=== PATIENT | male | born 1990 | race African-American/Black ===

== ENCOUNTER 2018-12-02 13:25 | Emergency (ER) | payer BC, OTHER ==
[2018-12-02 13:30] VITALS: TEMP 97.4
--- NOTE | 2018-12-02 13:43 | PDOC ---
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 Pt is post-ictal, and can provide very limited history, but pt is accompanied by his uncle, girlfriend, and brother. According to the family, the pt has had sz for about 15 years, with sz about once per week, usually with long post-ictal periods (pt can be "tired for hours"). Pt had a total of 3 sz today (9am, 11am, and noon), and the pts girlfriend found him on the kitchen floor after the last sz, prompting the EMS call. Pts uncle states the pt was drinking alcohol Gino night, and the pt was "not feeling well yesterday". Family denies any recent fever, cough, or vomiting in the pt. Family denies any changes to the pts medications, and pt has been compliant. Pt is still post-ictal and cannot provide other hx at this time. Bedside BGM 78. Allergies: NKDA PCP: Julián Pettit Neuro: Dr. Ponce Social: Pt smokes THC and social alcohol. Denies any cigarette or other drug use. Denies any recent travel or sick contacts. 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 Family: no relevant history. 12/02/18 16:55 Past History - Travel Traveled outside of the country in the last 30 days: No Close contact w/someone who was outside of country & ill: No - Past Medical History Allergies/Adverse Reactions: Allergies Allergy/AdvReac Type Severity Reaction Status Date / Time No Known Allergies Allergy Verified 12/02/18 13:26 Home Medications: Ambulatory Orders Oxcarbazepine 600 mg PO BID 12/02/18 COPD: No Seizures: Yes - Suicide/Smoking/Psychosocial Hx Smoking History: Current every day smoker Have you smoked in the past 12 months: Yes Number of Cigarettes Smoked Daily: 4 Information on smoking cessation initiated: No Hx Alcohol Use: No Drug/Substance Use Hx: No Review of Systems - Review of Systems Able to Perform ROS?: No (post-ictal, see HPI) Is the patient limited Samoan proficient: No Constitutional: No: Fever, Loss of Appetite Respiratory: No: Cough, Shortness of Breath ABD/GI: No: Vomiting Neurological: Yes: Symptoms reported, Seizure *Physical Exam - Vital Signs Last Vital Signs Temp Pulse Resp BP Pulse Ox 97.4 F L 57 L 18 96/63 100 12/02/18 13:27 12/02/18 13:27 12/02/18 13:27 12/02/18 13:27 12/02/18 13:27 - Physical Exam Comments: HR 57, BP 96/63, pt afebrile. Pt A/O x3 but still lethargic, normal body habitus. manager of revenue generally intact, muscular strength and sensation intact. Pt moving all extremities and responds appropriately to commands. Withdraws from painful stimuli. No midline spinal tenderness, step-offs, or crepitus. No neck stiffness nor tenderness with neck flexion or extension. Head with two hematomas: over R eye and R forehead. No active bleeding. Small abrasion to R eyelid. Eyes PERRLA, EOMI. Significant fluctuant hematoma of R eyelid, able to open eyes on command. No erythema of conjunctiva, no tenderness elicited with EOM. TMs without erythema nor blood. No ecchymosis behind ears. Oropharynx without erythema or exudates, no LAD b/l. No nasal congestion, hearing intact. Clear heart sounds, S1/S2, no JVD, b/l pedal edema, or heart murmur. Clear lung sounds, no respiratory distress, wheezes, crackles, or accessory muscle use. No abdominal or CVA tenderness to palpation, no rebound, no guarding. Abdomen soft, non-distended, and with normoactive bowel sounds. Skin without jaundice or rash. 12/02/18 13:43 12/02/18 15:36 ED Treatment Course - LABORATORY CBC & Chemistry Diagram: 12/02/18 14:31 12/02/18 14:32 Medical Decision Making - Medical Decision Making Pt was seen at bedside, also will be seen by attending Dr. Reyes. Pt presenting via EMS from home after multiple seizures and fall. Pt is post-ictal, and can provide very limited history, but pt is accompanied by his uncle, girlfriend, and brother. According to the family, the pt has had sz for about 15 years, with sz about once per week, usually with long post-ictal periods (pt can be "tired for hours"). Pt had a total of 3 sz today (9am, 11am, and noon), and the pts girlfriend found him on the kitchen floor after the last sz, prompting the EMS call. Pts uncle states the pt was drinking alcohol Gino night, and the pt was "not feeling well yesterday". Family denies any recent fever, cough, or vomiting in the pt. Family denies any changes to the pts medications, and pt has been compliant. Pt is still post-ictal and cannot provide other hx at this time. Bedside BGM 78. Pt seems to be having more frequent sz compared to baseline, will look for infectious and metabolic causes of decreased sz threshold. Pt also drinking alcohol and smoking heavy THC, which could have ppt this incident. Will also obtain imaging to look for potential mass recurrence, bleeding, and fractures sustained from falling, as pt has significant scalp and eye hematomas. Ordered work-up including CBC, CMP, Mg, EKG, chest x-ray, UA, non-contrast head , c-spine, and facial bones CT. Will continue to reassess pt and monitor for symptomatic improvement. 12/02/18 13:43 CT head with no acute bleed, mass, or midline shift. Scalp hematoma present. Worsened hypodensity surrounding prior craniotomy site, more likely representing encephalomalacia than recurrent ds. C-spine with no acute pathology. 12/02/18 15:47 CT facial bones negative for fracture, positive only for soft tissue swelling. Pt has improved from post-ictal period. Calling Dr. Ponce's team to get recommendations for sz medication. 12/02/18 16:14 Providing pt 1 L IV NS and will obtain urine sample. Providing 4 mg IV zofran for nausea. Dr. Barajas suggested increasing trileptal to 600 mg BID and additional 300 mg PO at night. Dr. Barajas will also follow the pt if he is admitted for observation. 12/02/18 16:36 UA negative for infection. Providing pt 650 mg PO tylenol and 600 mg PO trileptal before pt leaves ED. Pt now ambulatory in ED, back at baseline mental status. Considering normal lab results and imaging, pt can be discharged to home with follow-up. Pt advised to follow-up with PCP in 1-2 days and has been referred to ophthalmology. Strict return precautions provided with pt understanding. 12/02/18 18:17 *DC/Admit/Observation/Transfer Diagnosis at time of Disposition: Seizure Closed head injury Qualifiers: Encounter type: initial encounter Qualified Code(s): S09.90XA - Unspecified injury of head, initial encounter - Discharge Dispostion Disposition: HOME Condition at time of disposition: Improved Decision to Admit order: No - Referrals Referrals: Julián Burroughs MD [Primary Care Provider] - Dg Ponce MD [Staff Physician] - Anastacio Miguel MD [Staff Physician] - - Patient Instructions Printed Discharge Instructions: DI for Seizure Disorder -- Adult Additional Instructions: You were seen in the ER today for seizures. The results of your labs and imaging today showed only a hematoma in your forehead and eye. Please follow-up with your primary care doctor, neurology, and ophthalmology within 1-2 days to discuss your visit and make sure your symptoms have improved. Please return to the ER if you have any continued seizures, development of fevers or chills, confusion or loss of vision, loss of consciousness, inability to tolerate food or fluids, or any other concerns. Please increase your dose to 600 mg in the morning and afternoon, and additional 300 mg (1/2 of pill) in the evening. - Post Discharge Activity
[2018-12-02 14:41] LABS: BASO % 0.5 % (0-2.0); EOS % 0.7 % (0-4.5); HEMATOCRIT 36.8 % (35.4-49); HEMOGLOBIN 12.3 GM/dL (11.7-16.9); LYMPH % 6.6 % (8-40); MCH 31.3 pg (25.7-33.7); MCHC 33.4 g/dl (32.0-35.9); MEAN CELL VOLUME 93.6 fl (80-96); MONO % 5.5 % (3.8-10.2); NEUT % 86.7 % (42.8-82.8); PLATELET COUNT 295 K/MM3 (134-434); RBC 3.94 M/mm3 (4.00-5.60); RDW 13.6 % (11.9-15.9); WHITE BLOOD COUNT 13.8 K/mm3 (4.0-10.0)
--- NOTE | 2018-12-02 15:02 | PDOC ---
Documentation entered by Sasha Kirkpatrick SCRIBE, acting as scribe for Sacha Reyes MD. Sahca Reyes MD: This documentation has been prepared by the scribe, Sasha Kirkpatrick SCRIBE, under my direction and personally reviewed by me in its entirety. I confirm that the documentation accurately reflects all work, treatment, procedures, and medical decision making performed by me. Attending Attestation - Resident Resident Name: Kristin Avila - ED Attending Attestation I have performed the following: I have examined & evaluated the patient, The case was reviewed & discussed with the resident, I agree w/resident's findings & plan, Exceptions are as noted - HPI HPI: 12/02/18 15:28 The patient is a 28-year-old male, with a past medical history of seizures (on oxcarbamazapine) sp tumor resection when he was 13, who presents to the ED with recurrent seizures today. The patient reports having a seizure last week for which he saw his PCP. He had 2 witnessed seizures today and then had a third one that was unwitnessed, gf heard a thud when she was showering and when she went outside, saw him o nthe ground and postictal. Per family pt was doing ok recently, he did endorse a mild headache and was feeling tired yesterday - did endorse drinking on monday. The patient denies any fevers, chills, cough, nausea, vomiting, diarrhea, constipation, or abdominal pain. Denies any chest pain, palpitations, or shortness of breath. Allergies: NKA PCP: Dr. Burroughs - Physicial Exam PE: 12/02/18 16:22 GENERAL: The patient is awake, alert, and fully oriented, Nontoxic - in no acute distress. HEAD: Normocephalic, soft tissue edema on R periorbital region and R frontal scalp without stepoffs. EYES: extraocular movements intact, periorbital edema, conjunctiva clear, pupiles symmetrcailly reactive to light ENT: Normal voice, Moist mucous membranes. NECK: Normal range of motion, no focal ttp on midline cervical/thoraic lumbar spine LUNGS: Breath sounds equal, clear to auscultation bilaterally. No wheezes, no rhonchi, no rales. HEART: Regular rate and rhythm, normal S1 and S2 without murmur, rub or gallop. ABDOMEN: Soft, nontender, No guarding, no rebound. . No CVA tenderness EXTREMITIES: Normal range of motion, NEUROLOGICAL: No facial assymetry, Normal speech, moving all 4 ext spontaneously and symmetrically PSYCH: Normal mood, normal affect. SKIN: Warm, Dry, normal turgor, - Medical Decision Making 12/02/18 14:23 28y M hx of seizures (on oxacarbamazapine) presents with recurrent seizures, had seen his doctor last week for a seizure and had 2 today, EMS was called by GF. Pt did some etoh ingestion on monday and wasnt feeling well. Denies any recent illness otherwise including fever/cough/diarrhea/dysuria. no obvious triggers - compliant with meds, no new meds, no infectious complaints , sleeping well per family. unclear cause of his increase in seizure - will obtain labs, ct head, wally lreassess and dw neurology 12/02/18 16:28 ct head/labs unremarkble awaiting dw dr. uriostegui will continue to monitor Heart Score/ECG Review - ECG Impressions Comment:: 12/02/18 16:30 Twelve-lead EKG was performed and reviewed by me. There is normal sinus rhythm with a rate of 55 The axis is normal. The intervals are normal. There is normal R wave progression There are no ST or T wave abnormalities. Impression: sinus bradycardia
[2018-12-02 15:12] LABS: ALBUMIN 3.9 g/dl (3.4-5.0); BILIRUBIN,TOTAL 0.4 mg/dL (0.2-1); BLOOD UREA NITROGEN 13.2 mg/dL (7-18); CALCIUM 8.7 mg/dL (8.5-10.1); CREATININE 1.2 mg/dL (0.55-1.3); MAGNESIUM 2.1 mg/dL (1.8-2.4); POTASSIUM 3.8 mmol/L (3.5-5.1); TOT PROT 6.6 g/dl (6.4-8.2)
[2018-12-02] MEDS ORDERED: SODIUM CHLORIDE 1,000 ML IV STA (16:26)
[2018-12-02] MEDS ORDERED: ONDANSETRON 4 MG/2 ML VIAL IVPUSH ONE (16:54)
[2018-12-02] MEDS ORDERED: ONDANSETRON 4 MG/2 ML VIAL ONE (17:11)
[2018-12-02 17:37] LABS: EPI CELLS 0.5 /HPF (0-5/HPF); HYALINE CASTS 4 /lpf (0-8); URINE APPEARANCE CLOUDY; URINE BACTERIA 2.5 /hpf (NEGATIVE); URINE BILIRUBIN NEGATIVE (NEGATIVE); URINE COLOR YELLOW; URINE GLUCOSE (UA) NEGATIVE (NEGATIVE); URINE KETONE TRACE (NEGATIVE); URINE LEUK ESTERASE NEGATIVE (NEGATIVE); URINE NITRITE NEGATIVE (NEGATIVE); URINE PROTEIN TRACE (NEGATIVE); URINE RBC 0 /hpf (0-4); URINE UROBILINOGEN 0.2 mg/dL (0.2-1.0); URINE WBC 2 /hpf (0-5)
[2018-12-02 18:06] VITALS: BP 106/55; PULSE 67
[2018-12-02] MEDS ORDERED: OXcarbazepine 300 MG/5 ML 250 ML BULK BOTTLE PO ONE (18:14)
[2018-12-02] MEDS ORDERED: ACETAMINOPHEN 325 MG TABLET (FP) PO ONE (18:15)
[2018-12-02] MEDS ORDERED: ACETAMINOPHEN 325 MG TABLET (FP) ONE (18:19)
[2018-12-02] MEDS ORDERED: OXcarbazepine 300 MG TABLET (UD) PO ONE (18:30)
--- NOTE | 2018-12-03 11:41 | EKG ---
Test Reason : Blood Pressure : / mmHG Vent. Rate : 055 BPM Atrial Rate : 055 BPM P-R Int : 180 ms QRS Dur : 094 ms QT Int : 408 ms P-R-T Axes : 071 081 062 degrees QTc Int : 390 ms SINUS BRADYCARDIA WITH SINUS ARRHYTHMIA RSR' OR QR PATTERN IN V1 SUGGESTS RIGHT VENTRICULAR CONDUCTION DELAY WHEN COMPARED WITH ECG OF 06-JUL-2004 19:33, NO SIGNIFICANT CHANGE WAS FOUND Confirmed by CURRY PELAEZ, OVIDIO ([id number]) on 12/03/2018 11:41:07 AM Referred By: Confirmed By:OVIDIO ZAPIEN MD
== END 2018-12-02 18:33 | disposition home or self-care (01) ==
LOC: JER 13:25
PROC: 3E0337Z Introduction of Electrolytic and Water Balance Substance into Peripheral Vein, Percutaneous Approach (ICD-10-PCS; principal; 2018-12-02)
PROC: 3E033GC Introduction of Other Therapeutic Substance into Peripheral Vein, Percutaneous Approach (ICD-10-PCS; 2018-12-02)
DX: G40.909 Epilepsy, unspecified, not intractable, without status epilepticus (principal); S09.8XXA Other specified injuries of head, initial encounter; S00.83XA Contusion of other part of head, initial encounter; S00.11XA Contusion of right eyelid and periocular area, initial encounter; W18.39XA Other fall on same level, initial encounter; Y93.89 Activity, other specified; Y92.030 Kitchen in apartment as the place of occurrence of the external cause; Y99.8 Other external cause status
CPT/HCPCS: 36415; 70450-TC; 70486-TC; 71045-TC-FY; 72125-TC; 80053; 81003; 82962; 83735; 85025; 93005; 93010; 96361; 96374; 99283-25; J7030

== ENCOUNTER 2019-05-27 09:49 | Emergency (ER) | payer OTHER ==
[2019-05-27 10:06] VITALS: TEMP 97.6; BMI 23.3
--- NOTE | 2019-05-27 10:57 | EKG ---
Test Reason : Blood Pressure : / mmHG Vent. Rate : 068 BPM Atrial Rate : 068 BPM P-R Int : 192 ms QRS Dur : 088 ms QT Int : 376 ms P-R-T Axes : 080 087 065 degrees QTc Int : 399 ms NORMAL SINUS RHYTHM ST ELEVATION, CONSIDER EARLY REPOLARIZATION BORDERLINE ECG WHEN COMPARED WITH ECG OF 02-DEC-2018 14:31, NO SIGNIFICANT CHANGE WAS FOUND Confirmed by OVIDIO ZAPIEN MD ([id number]) on 05/27/2019 10:57:12 AM Referred By: Confirmed By:OVIDIO ZAPIEN MD
[2019-05-27 11:02] LABS: BASO % 0.5 % (0-2.0); EOS % 2.6 % (0-4.5); HEMATOCRIT 38.8 % (35.4-49); HEMOGLOBIN 12.9 GM/dL (11.7-16.9); LYMPH % 14.7 % (8-40); MCH 30.9 pg (25.7-33.7); MCHC 33.3 g/dl (32.0-35.9); MEAN CELL VOLUME 92.8 fl (80-96); MEAN PLT VOLUME 7.3 fl (7.5-11.1); MONO % 6.9 % (3.8-10.2); NEUT % 75.3 % (42.8-82.8); PLATELET COUNT 265 K/MM3 (134-434); RBC 4.18 M/mm3 (4.00-5.60); RDW 13.8 % (11.9-15.9); WHITE BLOOD COUNT 5.1 K/mm3 (4.0-10.0)
--- NOTE | 2019-05-27 11:14 | PDOC ---
History of Present Illness - General Chief Complaint: Seizure Stated Complaint: SEIZURE Time Seen by Provider: 05/27/19 10:02 History Source: Patient, Family Exam Limitations: No Limitations - History of Present Illness Initial Comments: 05/27/19 11:12 Raymundo Montalvo is a 29M with 15 year history of chronic seizure disorder s/p brain surgery on Trileptal 600mg BID, presenting with new episode LOC today. 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 Patient does not remember event, but denies head injury or other bodily injury, denies tongue injury or loss of bowel/bladder continence. Feels completely normal, denies fever/chills, N/V/C/D, abd pain, chest pain, headache, palpitations, SOB, changes to vision/hearing. No other sick contacts at home. Per family at bedside, patient was found shaking for 2-3 minutes, then returned to baseline immediately and was drinking water and speaking complete sentences, walked into ambulance. Normal seizures have post-ictal confusion that last 20 minutes. Denies alcohol use, smokes 0.5ppd cigarettes, smokes marijuana q3x per day for over a decade. On Trileptal 600mg BID, says he has been taking consistently, no recent medication changes, sees Dr. Ponce, has f/u appointments every 2-3 months, seizures tend to happen right before appointments, last sz 2 months ago. Past History - Past Medical History Allergies/Adverse Reactions: Allergies Allergy/AdvReac Type Severity Reaction Status Date / Time No Known Allergies Allergy Verified 05/27/19 10:06 Home Medications: Ambulatory Orders Oxcarbazepine 600 mg PO BID 12/02/18 Oxcarbazepine [Trileptal -] 300 mg PO DAILY #14 tablet 05/27/19 COPD: No Seizures: Yes - Psycho Social/Smoking Cessation Hx Smoking History: Smoker current status UNK Have you smoked in the past 12 months: No Number of Cigarettes Smoked Daily: 4 Information on smoking cessation initiated: No Hx Alcohol Use: No Drug/Substance Use Hx: No Review of Systems - Review of Systems Constitutional: No: Symptoms Reported HEENTM: No: Symptoms Reported Respiratory: No: Symptoms reported Cardiac (ROS): No: Symptoms Reported ABD/GI: No: Symptoms Reported : No: Symptoms Reported Musculoskeletal: No: Symptoms Reported Integumentary: No: Symptoms Reported Neurological: Yes: Seizure Endocrine: No: Symptoms Reported Hematologic/Lymphatic: No: Symptoms Reported All Other Systems: Reviewed and Negative *Physical Exam - Vital Signs Last Vital Signs Temp Pulse Resp BP Pulse Ox 97.6 F 80 16 101/62 98 05/27/19 09:50 05/27/19 09:50 05/27/19 09:50 05/27/19 09:50 05/27/19 09:50 - Physical Exam General Appearance: Yes: Nourished, Appropriately Dressed. No: Apparent Distress HEENT: positive: EOMI, KWAME, Normal ENT Inspection, Normal Voice, Symmetrical, Pharynx Normal, Hearing Grossly Normal, Other (normocephalic atraumatic). negative: Scleral Icterus (R), Scleral Icterus (L), Pharyngeal Erythema, Tonsillar Exudate, Tonsillar Erythema Neck: positive: Trachea midline, Normal Thyroid, Supple. negative: Tender, Lymphadenopathy (R), Lymphadenopathy (L) Respiratory/Chest: positive: Lungs Clear, Normal Breath Sounds. negative: Chest Tender, Respiratory Distress, Accessory Muscle Use, Crackles, Rales, Rhonchi, Stridor Cardiovascular: positive: Regular Rhythm, Regular Rate Gastrointestinal/Abdominal: positive: Normal Bowel Sounds, Flat, Soft. negative : Tender, Guarding, Rebound, Hernia, Mass Musculoskeletal: positive: Normal Inspection. negative: CVA Tenderness, Vertebral Tenderness Extremity: positive: Normal Capillary Refill, Normal Inspection, Normal Range of Motion. negative: Tender Integumentary: positive: Normal Color, Dry, Warm Neurologic: positive: manager of maintenance II-XII NML intact, Fully Oriented, Alert, Normal Mood/ Affect, Normal Response, Motor Strength 5/5 ED Treatment Course - LABORATORY CBC & Chemistry Diagram: 05/27/19 10:48 05/27/19 10:48 - ADDITIONAL ORDERS Additional order review: Laboratory Results 05/27/19 11:00 POC Glucometer 80 05/27/19 05/27/19 11:00 10:48 RBC 4.18 MCV 92.8 MCHC 33.3 RDW 13.8 MPV 7.3 L Neutrophils % 75.3 Lymphocytes % 14.7 D Monocytes % 6.9 Eosinophils % 2.6 D Basophils % 0.5 POC Glucometer 80 Medical Decision Making - Medical Decision Making 05/27/19 11:12 Raymundo Montalvo is a 29M with 15 year history of chronic seizure disorder s/p brain surgery on Trileptal 600mg BID, presenting with new episode LOC today. Presentation is consistent with sz, but given no post-ictal state could be syncope. Patient is currently alert/oriented with no notable neurological deficits. Will evaluate for infectious causes of seizure vs. electrolyte abnormalities, and consult Dr. Ponce for moving his next appointment up from . CMP CBC CPK ECG 05/27/19 12:[address] Ponce, recommends increasing Trileptal dose by adding 300mg at midday in addition to 600mg BID for a daily total 1500mg per day, and would like f/u later this week. Prescribing 2 weeks of 300mg QD Trileptal to hold patient over until next appointment, will try to get appointment pushed up to this week. ECG shows NSR with HR 68. QRs 88, QTc 399, isolated ST elevation in V3, no TWI. Patient stable to be discharged home with neurology f/u. Discharge - Discharge Information Problems reviewed: Yes Clinical Impression/Diagnosis: Seizure Condition: Stable Disposition: HOME - Additional Discharge Information Prescriptions: Oxcarbazepine [Trileptal -] 300 mg PO DAILY #14 tablet - Follow up/Referral Referrals: Dg Ponce MD [Staff Physician] - - Patient Discharge Instructions Patient Printed Discharge Instructions: DI for Seizure Disorder -- Adult Additional Instructions: Today you were evaluated for a possible seizure. You were examined by the doctors and were found to be alert and without any pain or neurological deficits. Your blood labs are unremarkable for infection, electrolyte abnormalities, or anemia. Your ECG is normal. Your seizure today may be simply related to dehydration, so please remember to stay hydrated and eat a good diet. We spoke to Dr. Ponce, who recommends that you take an extra 300mg Trileptal in the day in addition to your 600mg in the morning and at night to help prevent further seizures. Please follow-up with him later this week for further care. If you experience worsening seizures, headache, fever, shortness of breath , chest pain, or any other new or concerning symptoms, please return to the emergency room. - Post Discharge Activity
[2019-05-27 11:17] VITALS: BP 115/61; PULSE 68
[2019-05-27 11:34] LABS: MAGNESIUM 2.6 mg/dL (1.8-2.4); PHOSPHOROUS 2.1 mg/dL (2.5-4.9)
[2019-05-27 11:36] LABS: ALBUMIN 3.9 g/dl (3.4-5.0); BILIRUBIN,TOTAL 0.4 mg/dL (0.2-1); BLOOD UREA NITROGEN 13.6 mg/dL (7-18); CALCIUM 8.9 mg/dL (8.5-10.1); CREATININE 1.1 mg/dL (0.55-1.3); POTASSIUM 4.4 mmol/L (3.5-5.1); TOT PROT 6.8 g/dl (6.4-8.2)
[2019-05-27 12:39] LABS: EPI CELLS 1.2 /HPF (0-5/HPF); HYALINE CASTS 5 /lpf (0-8); PH,URINE 6.5 (5.0-8.0); URINE APPEARANCE CLEAR; URINE BACTERIA 2.1 /hpf (NEGATIVE); URINE BILIRUBIN NEGATIVE (NEGATIVE); URINE COLOR YELLOW; URINE GLUCOSE (UA) NEGATIVE (NEGATIVE); URINE KETONE NEGATIVE (NEGATIVE); URINE LEUK ESTERASE NEGATIVE (NEGATIVE); URINE NITRITE NEGATIVE (NEGATIVE); URINE PROTEIN TRACE (NEGATIVE); URINE RBC 3 /hpf (0-4); URINE UROBILINOGEN 0.2 mg/dL (0.2-1.0); URINE WBC 1 /hpf (0-5)
[2019-05-27 12:44] LABS: COCAINE, UR NEGATIVE ng/ml (CUTOFF=300); METHADONE, UR NEGATIVE ng/ml (CUTOFF=300); OPIATES, URI NEGATIVE ng/ml (CUTOFF=300); PHENCYCLIDINE,URINE NEGATIVE ng/ml (CUTOFF=25); URINE AMPHETAMINES NEGATIVE ng/ml (CUTOFF=500); URINE BARBITURATES NEGATIVE ng/ml (CUTOFF=200); URINE BENZODIAZEPINES NEGATIVE ng/ml (CUTOFF=200)
--- NOTE | 2019-05-28 15:18 | PDOC ---
Attending Attestation - Resident Resident Name: Chay John - ED Attending Attestation I have performed the following: I have examined & evaluated the patient, The case was reviewed & discussed with the resident, I agree w/resident's findings & plan, Exceptions are as noted
== END 2019-05-27 12:56 | disposition home or self-care (01) ==
LOC: JER 09:49
DX: G40.909 Epilepsy, unspecified, not intractable, without status epilepticus (principal)
CPT/HCPCS: 36415; 80053; 80307; 81003; 82550; 82553; 82962; 83735; 84100; 85025; 87086; 93005; 93010; 99283-25